=== PATIENT | male | born 1980 | race Hispanic/Latino ===

== ENCOUNTER 2017-01-07 10:57 | Outpatient (RCR) | payer BC | END 2017-04-07 | disposition home or self-care (01) | LOC: LAB 10:57 | PROVIDERS: ATTEND Family Medicine | DX: Z31.69 Encounter for other general counseling and advice on procreation (principal) | CPT/HCPCS: 89320 ==

== ENCOUNTER 2017-01-21 11:39 | Outpatient (RCR) | payer BC | END 2017-04-21 | disposition home or self-care (01) | LOC: LAB 11:39 → EDSTATUS 11:45 | PROVIDERS: ATTEND Family Medicine | DX: Z31.69 Encounter for other general counseling and advice on procreation (principal) | CPT/HCPCS: 89320 ==